=== PATIENT | male | born 1985 | race Caucasian/White ===

== ENCOUNTER → 2022-06-13 | Outpatient (CLI) | payer OTHER ==
[~2022-06-13] MED LIST: BUPRENORPHIN-N1 EACH SL; CARVEDILOL3.125 MG PO; CLARITIN10 M2 PO; CLEOCIN HCL300 MG PO; HYDROCODON-ACE1 EAC4 PO; LEVOFLOXACIN750 MG PO; LISINOPRIL2.5 MG PO
[2022-06-13 13:08] LABS: HEMOGLOBIN 15.5 gm/dl (14.0-17.5); RED BLOOD COUNT 5.2 M/UL (4.20-5.50); WHITE BLOOD COUNT 8.9 K/UL (4.5-11.0)
[2022-06-13 13:24] LABS: BUN/CREATININE RATIO 23 (0-10)
== END ==
LOC: LAB 12:10
PROVIDERS: Internal Medicine Cardiovascular Disease
DX: Z45.02 Encounter for adjustment and management of automatic implantable cardiac defibrillator (principal); I42.0 Dilated cardiomyopathy; I50.22 Chronic systolic (congestive) heart failure
CPT/HCPCS: 36415; 71046; 80048; 85025

== ENCOUNTER → 2022-06-17 | Outpatient (CLI) | payer OTHER | LOC: CATH 09:26 | DX: Z45.02 Encounter for adjustment and management of automatic implantable cardiac defibrillator (principal); I50.22 Chronic systolic (congestive) heart failure; I42.0 Dilated cardiomyopathy; I44.2 Atrioventricular block, complete; I44.7 Left bundle-branch block, unspecified; Q21.8 Other congenital malformations of cardiac septa; Z87.891 Personal history of nicotine dependence; Z79.899 Other long term (current) drug therapy | CPT/HCPCS: 93641; 99152; 99153; J2250; J3010; J3370; J7040; J7050 ==